=== PATIENT | male | born 1950 | race Caucasian/White ===

== ENCOUNTER 2016-10-27 13:34 | Emergency (ER) | payer MEDICARE, OTHER ==
[2016-10-27 13:50] VITALS: BP 144/80
--- NOTE | 2016-10-27 14:00 | EDM.PDOC ---
ED HPI GENERAL MEDICAL PROBLEM - General Chief Complaint: General Stated Complaint: SWELLING/NAUSEA Time Seen by Provider: 10/27/16 13:59 Source of Information: Reports: Patient History Limitations: Reports: No Limitations - History of Present Illness INITIAL COMMENTS - FREE TEXT/NARRATIVE: 66-year-old male presents to the ED for evaluation of increased fluid retention and weight gain over the last month. Feels he's gained between 20 and 25 pounds of weight since he's been on vacation over the last month. He is particularly noting increased dependent edema and now today more swelling in his dorsal hands and fingers. No swelling of his face. He can sleep lying flat for a period of time but has to get up usually because he feels like his somebody close enough his nose and has to sit in the easy chair up for a while and midnight. Cough is nonproductive. No fever or chills. Appetite remains good. Feels he is voiding satisfactorily. History of sarcoidosis diagnosed 12 years ago and states he's always been short of breath or dyspneic since that time. No recurrences or flareups identified. No recent changes to any of his medications. He has appreciated increased allergies affecting his nose and eyes since he's been in the [facility] states. Onset: Gradual (Over the last 3-4 weeks.) Duration: Day(s):, Week(s):, Getting Worse Location: Reports: Generalized (Generalized increase in weight and fluid retention in his lower and upper extremities.) Quality: Reports: Other Severity: Moderate (Feels a little achy.) Improves with: Reports: None Worsens with: Reports: None Context: Reports: Other (Currently on vacation and traveling. Came up from [facility] and throughout the [facility] and now crossing across the [facility]) . Denies: Activity, Exercise, Lifting, Sick Contact, Trauma Associated Symptoms: Reports: Cough, Diaphoresis, Malaise (Nonproductive cough) , Shortness of Breath, Weakness (Generalized.). 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: Reports: Other (see below) Left Chest Pain Score (Numeric/FACES): 2 - Related Data Allergies Allergy/AdvReac Type Severity Reaction Status Date / Time Uvcwhro-Doc-Lme Reductase Allergy Muscle Verified 10/27/16 13:51 Inhibitor Aches Home Meds: Home Meds Atenolol 50 mg PO DAILY 10/27/16 [History] Hydrochlorothiazide 50 mg PO DAILY 10/27/16 [History] Levothyroxine 125 mcg PO DAILY 10/27/16 [History] Naproxen Sodium 220 mg PO BID 10/27/16 [History] Tamsulosin [Flomax] 0.4 mg PO BEDTIME 10/27/16 [History] Past Medical History HEENT History: Reports: Impaired Vision Cardiovascular History: Reports: High Cholesterol, Hypertension Respiratory History: Reports: Other (See Below) Other Respiratory History: sarcoidois of the lungs. Diagnosed 12 years ago. As far as he knows it's under control. Gastrointestinal History: Reports: None Genitourinary History: Reports: BPH Musculoskeletal History: Reports: Arthritis Endocrine/Metabolic History: Reports: Hypothyroidism (Is on supplementation for this.) Dermatologic History: Reports: Eczema - Past Surgical History Cardiovascular Surgical History: Reports: None Respiratory Surgical History: Reports: None GI Surgical History: Reports: Colonoscopy Social & Family History - Family History Family Medical History: Noncontributory - Tobacco Use Smoking Status *Q: Former Smoker Used Tobacco, but Quit: Yes Month Tobacco Last Used: 1973 - Caffeine Use Caffeine Use: Reports: Coffee, Soda - Recreational Drug Use Recreational Drug Use: No - Living Situation & Occupation Living situation: Reports: Occupation: Retired ED ROS GENERAL - Review of Systems Review Of Systems: See Below Constitutional: Reports: Malaise, Weakness, Fatigue, Diaphoresis. Denies: Fever , Chills, Decreased Appetite, Weight Loss HEENT: Reports: No Symptoms Respiratory: Reports: Shortness of Breath, Cough. Denies: Wheezing, Pleuritic Chest Pain (On minimal exertion), Sputum, Hemoptysis (Nonproductive), Other Cardiovascular: Reports: Blood Pressure Problem, Dyspnea on Exertion ( Increasing dependent edema and no appreciable in his hands and fingers as well.) , Edema. Denies: Claudication, Lightheadedness, Orthopnea (Chronic hypertension usually well-controlled with current medications.), Palpitations ( Chronically) Endocrine: Reports: Fatigue GI/Abdominal: Denies: Abdominal Pain, Anorexia, Black Stool, Bloody Stool, Diarrhea, Decreased Appetite, Difficulty Swallowing, Flatus, Hematemesis, Hematochezia, Melena, Stool Incontinence, Vomiting, Other : Reports: Frequency, Other (Has benign prostatic hypertrophy. Urinary stream is slow. Usually up twice at night to void.) Musculoskeletal: Reports: Back Pain, Joint Pain Skin: Reports: No Symptoms (Knees and hips at times.) Neurological: Reports: No Symptoms Psychiatric: Reports: No Symptoms ED EXAM, GENERAL - Physical Exam Exam: See Below Exam Limited By: No Limitations General Appearance: Alert, WD/WN, No Apparent Distress Eye Exam: Bilateral Eye: Normal Inspection Throat/Mouth: Normal Inspection, Normal Lips, Normal Teeth, Normal Oropharynx Head: Atraumatic, Normocephalic Neck: Normal Inspection, Supple, Non-Tender, Full Range of Motion, Other ( Unable to appreciate any jugular venous pulsation elevation due to bowl neck.). No: Lymphadenopathy (L), Lymphadenopathy (R) Respiratory/Chest: No Respiratory Distress, Lungs Clear, Normal Breath Sounds, No Accessory Muscle Use, Chest Non-Tender. No: Respiratory Distress, Rhonchi, Wheezing, Retractions Cardiovascular: Regular Rate, Rhythm, No Gallop, No Murmur, No Rub. No: No Edema Peripheral Pulses: 1+: Posterior Tibial (L), Posterior Tibial (R), Dorsalis Pedis (L), Dorsalis Pedis (R) GI/Abdominal: Normal Bowel Sounds, Soft, Non-Tender, No Organomegaly, Other Back Exam: Normal Inspection, Full Range of Motion. No: CVA Tenderness (L), CVA Tenderness (R) Extremities: Pedal Edema Neurological: Alert (2-3+ pitting edema of the lower extremities up to the tibial tuberosities bilaterally. Also dorsal hands and fingers are puffy and swollen.), Oriented, CN II-XII Intact, Normal Cognition, No Motor/Sensory Deficits. No: Normal Gait Psychiatric: Normal Affect, Normal Mood Skin Exam: Warm, Dry, Intact, Normal Color, No Rash EKG INTERPRETATION EKG Date: 10/27/16 Time: 14:15 Rhythm: Other Rate (Beats/Min): 42 [place]: LAD-Left [place] Deviation P-Wave: Present (-60. Left anterior fascicular block pattern) QRS: Normal ST-T: Normal QT: Prolonged (Markedly prolonged at 509.) Course - Vital Signs Last Recorded V/S: Last Vital Signs Temp 36.0 C 10/27/16 13:45 Pulse 46 L 10/27/16 13:45 Resp 16 10/27/16 13:45 BP 144/80 H 10/27/16 13:45 Pulse Ox 98 10/27/16 13:45 - Orders/Labs/Meds Orders: Active Orders 24 hr Category Date Time Status EKG Documentation Completion [RC] STAT Care 10/27/16 14:09 Active Peripheral IV Care [RC] . DIRECTED Care 10/27/16 14:09 Active Chest 1V Frontal [CR] Stat Exams 10/27/16 14:08 Taken Sodium Chloride 0.9% [Saline Flush] Med 10/27/16 14:08 Active 10 ml FLUSH ASDIRECTED PRN Peripheral IV Insertion Adult [OM.PC] Stat Oth 10/27/16 14:09 Ordered Medication Orders Sodium Chloride (Saline Flush) 10 ml FLUSH ASDIRECTED PRN PRN Reason: Keep Vein Open Last Admin: 10/27/16 14:38 Dose: 10 ml Labs: Laboratory Tests 10/27/16 10/27/16 10/27/16 Range/Units 14:15 14:15 14:15 WBC 7.29 (4.23-9.07) K/mm3 RBC 5.54 (4.63-6.08) M/mm3 Hgb 15.9 (13.7-17.5) gm/L Hct 47.9 (40.1-51.0) % MCV 86.5 (79.0-92.2) fl MCH 28.7 (25.7-32.2) pg MCHC 33.2 (32.2-35.5) g/dl RDW Std Deviation 44.8 H (35.1-43.9) fL Plt Count 297 (163-337) K/mm3 MPV 10.0 (9.4-12.3) fl Neutrophils % (Manual) 73 H (40-60) % Band Neutrophils % 0 (0-10) % Lymphocytes % (Manual) 19 L (20-40) % Atypical Lymphs % 0 % Monocytes % (Manual) 7 (2-10) % Eosinophils % (Manual) 1 (0.8-7.0) % Basophils % (Manual) 0 L (0.2-1.2) Platelet Estimate Adequate RBC Morph Comment Normal ESR 81 H (0-15) mm/hr Sodium 138 (136-145) mEq/L Potassium 3.6 (3.5-5.1) mEq/L Chloride 103 (98-107) mEq/L Carbon Dioxide 29 (21-32) mEq/L Anion Gap 9.6 (5-15) BUN 20 H (7-18) mg/dL Creatinine 1.9 H (0.7-1.3) mg/dL Est Cr Clr Drug Dosing 37.00 mL/min Estimated GFR (MDRD) 36 (>60) mL/min BUN/Creatinine Ratio 10.5 L (14-18) Glucose 93 (80-115) mg/dL Calcium 8.3 L (8.5-10.1) mg/dL Magnesium 2.5 H (1.8-2.4) mg/dl Total Bilirubin 0.4 (0.2-1.0) mg/dL AST 31 (15-37) U/L ALT 25 (16-63) U/L Alkaline Phosphatase 83 (46-116) U/L C-Reactive Protein 1.0 (<1.0) mg/dL B-Natriuretic Peptide (0-100) pg/mL Total Protein 5.7 L (6.4-8.2) g/dl Albumin 1.3 L (3.4-5.0) g/dl Globulin 4.4 gm/dL Albumin/Globulin Ratio 0.3 L (1-2) TSH 3rd Generation 20.644 H (0.358-3.74) uIU/mL Urine Color (Yellow) Urine Appearance (Clear) Urine pH (5.0-8.0) Ur Specific [place] (1.005-1.030) Urine Protein (Negative) Urine Glucose (UA) (Negative) Urine Ketones (Negative) Urine Occult Blood (Negative) Urine Nitrite (Negative) Urine Bilirubin (Negative) Urine Urobilinogen (0.2-1.0) Ur Leukocyte Esterase (Negative) Urine RBC (0-5) /hpf Urine WBC (0-5) /hpf Ur Epithelial Cells (0-5) /hpf Amorphous Sediment (NOT SEEN) /hpf Urine Bacteria (FEW) /hpf Hyaline Casts (0-5) /lpf Urine Mucus (FEW) /hpf 10/27/16 10/27/16 Range/Units 14:15 15:10 WBC (4.23-9.07) K/mm3 RBC (4.63-6.08) M/mm3 Hgb (13.7-17.5) gm/L Hct (40.1-51.0) % MCV (79.0-92.2) fl MCH (25.7-32.2) pg MCHC (32.2-35.5) g/dl RDW Std Deviation (35.1-43.9) fL Plt Count (163-337) K/mm3 MPV (9.4-12.3) fl Neutrophils % (Manual) (40-60) % Band Neutrophils % (0-10) % Lymphocytes % (Manual) (20-40) % Atypical Lymphs % % Monocytes % (Manual) (2-10) % Eosinophils % (Manual) (0.8-7.0) % Basophils % (Manual) (0.2-1.2) Platelet Estimate RBC Morph Comment ESR (0-15) mm/hr Sodium (136-145) mEq/L Potassium (3.5-5.1) mEq/L Chloride (98-107) mEq/L Carbon Dioxide (21-32) mEq/L Anion Gap (5-15) BUN (7-18) mg/dL Creatinine (0.7-1.3) mg/dL Est Cr Clr Drug Dosing mL/min Estimated GFR (MDRD) (>60) mL/min BUN/Creatinine Ratio (14-18) Glucose (80-115) mg/dL Calcium (8.5-10.1) mg/dL Magnesium (1.8-2.4) mg/dl Total Bilirubin (0.2-1.0) mg/dL AST (15-37) U/L ALT (16-63) U/L Alkaline Phosphatase (46-116) U/L C-Reactive Protein (<1.0) mg/dL B-Natriuretic Peptide 26 (0-100) pg/mL Total Protein (6.4-8.2) g/dl Albumin (3.4-5.0) g/dl Globulin gm/dL Albumin/Globulin Ratio (1-2) TSH 3rd Generation (0.358-3.74) uIU/mL Urine Color Yellow (Yellow) Urine Appearance Clear (Clear) Urine pH 6.5 (5.0-8.0) Ur Specific [place] 1.020 (1.005-1.030) Urine Protein 3+ H (Negative) Urine Glucose (UA) Negative (Negative) Urine Ketones Negative (Negative) Urine Occult Blood 2+ H (Negative) Urine Nitrite Negative (Negative) Urine Bilirubin 1+ H (Negative) Urine Urobilinogen 1.0 (0.2-1.0) Ur Leukocyte Esterase Negative (Negative) Urine RBC 10-20 H (0-5) /hpf Urine WBC 0-5 (0-5) /hpf Ur Epithelial Cells 0-5 (0-5) /hpf Amorphous Sediment Moderate H (NOT SEEN) /hpf Urine Bacteria Few (FEW) /hpf Hyaline Casts 0-5 (0-5) /lpf Urine Mucus Not seen (FEW) /hpf Meds: Medications Generic Name Dose Route Start Last Admin Trade Name Freq PRN Reason Stop Dose Admin Sodium Chloride 10 ml 10/27/16 14:08 10/27/16 14:38 Saline Flush FLUSH 10 ml ASDIRECTED PRN Administration Keep Vein Open - Radiology Interpretation Free Text/Narrative:: 66-year-old male presents to the ED for evaluation of increasing dependent edema now edema affecting his upper extremities as well. Seems to have gained between 20 and 25 pounds of weight over the last month since he's been traveling. Currently is on vacation with his he has been affected a lot bye allergies in the air with his nose being occluded and eyes irritated but no changes in his medications to account for increasing dependent edema. He has no true orthopnea. He wakes up due to nasal congestion and has to sit in the easy chair for a period of time. Exam reveals 2-3+ pitting edema of the lower extremities as well as puffiness of his hands and fingers. He is retaining a good deal of fluid for unknown reason. He has a history of sarcoidosis 12 years ago and is to his knowledge it's been quiescent. Unclear whether or not he is component of pulmonary hypertension. He is on thyroid replacement therapy. Plan routine labs including a TSH to be done including cardiac markers. Cause of edema is unclear. Could be cardiogenic with pulmonary hypertension secondary to sarcoidosis. Could be renal as well. - Re-Assessments/Exams Free Text/Narrative Re-Assessment/Exam: 10/27/16 14:39 chest x-ray reveals prominent pulmonary right artery with perhaps very slight vascular congestion pattern. Cardiac silhouette is within normal limits. No pleural effusions evident. 10/27/16 16:08 labs are back and reveal a normal white count at 7.29 with normal differential 73% neutrophils and no bands. Hemoglobin is 15.9 hematocrit is 47.9. Platelets are 297,000. Sedimentation rate is elevated at 81 and needs to be kept an eye on. Sodium 1:30 potassium 3.6. Portable 03 bicarbonate 29. Anion gap is 9.6. The wind was 20 creatinine is 1.9.e GFR is 36 a stage III chronic kidney disease. Glucose is 93 magnesium 2.5 TSH came back markedly elevated at 20.64. His would correlate with his generalized weight gain puffiness without evidence of congestive failure. It also would account for his bradycardia of only 42. He reports last checkup was in August of this year in his medication was not changed. Been on thyroid medication since 2005 with gradually escalating doses. Therefore primary problem is uncontrolled hypothyroidism. Plan will be to double the dosage of his current medication of 0.125 milligrams of levothyroxine daily to 0.25 mg daily. He is to have repeat TSH done in 6-8 weeks' time. He should appreciated gradual increase in his heart rate and fatigue level and sleeping levels etc. Departure - Departure Time of Disposition: 16:11 Disposition: Home, Self-Care 01 Condition: Fair Clinical Impression: Hypothyroidism (acquired) - Discharge Information Instructions: Hypothyroidism Referrals: PCP,Not In Area [Primary Care Provider] - Forms: ED Department Discharge Additional Instructions: Evaluation in the emergency room today in regards to generalized fatigue weight gain of 20-25 pounds over the last month bradycardia and dyspnea on minimal exertion. Examination revealed no obvious signs of congestive heart failure although there is dependent edema in the lower extremities. Heart rate was appreciated on the be 42/m but otherwise normal ECG. Chest x-ray proved to be normal as well. Lab work essentially normal other than elevated sedimentation rate at 81 which may require further investigation should be repeated in 6 weeks ' time. This is a nonspecific indicator of inflammation. Primary problem is underactive thyroid gland with a TSH of 20.644. Normal is 2. It's means that current supplementation is inadequate replacement therapy. So for suggest doubling current dose to 2 tablets of the 1.25 microgram tablets per day. Continue this dosage until follow-up with your doctor in 6-8 weeks time.At that time repeat TSH/ESR will need to be done to see if placement therapy is adequate it may have to be reduced we bit. You should start to notice a difference in about a week's time in terms of energy level and fatigue level and heart rate improvement. - My Orders Last 24 Hours: My Active Orders 10/27/16 14:08 Chest 1V Frontal [CR] Stat Sodium Chloride 0.9% [Saline Flush] 10 ml FLUSH ASDIRECTED PRN 10/27/16 14:09 EKG Documentation Completion [RC] STAT Peripheral IV Care [RC] . DIRECTED Peripheral IV Insertion Adult [OM.PC] Stat - Assessment/Plan Last 24 Hours: My Active Orders 10/27/16 14:08 Chest 1V Frontal [CR] Stat Sodium Chloride 0.9% [Saline Flush] 10 ml FLUSH ASDIRECTED PRN 10/27/16 14:09 EKG Documentation Completion [RC] STAT Peripheral IV Care [RC] . DIRECTED Peripheral IV Insertion Adult [OM.PC] Stat
[2016-10-27] MEDS ORDERED: Sodium Chloride 0.9% 10 ML Syringe FLUSH PRN (14:08)
--- NOTE | 2016-10-28 08:03 | CR ---
Chest: Portable view of the chest was obtained. Comparison: No previous study. Heart size is normal. Tortuous thoracic aorta is seen. Lung markings are minimally increased most likely due to slight fibrosis. Nodule is noted within the left upper chest which is likely due to calcification within the first rib or incidental calcified granuloma. Lungs otherwise are clear. Bony structures are grossly intact. Impression: 1. Lung markings minimally increased most likely due to slight fibrosis. 2. Other incidental findings. 3. Nothing acute is otherwise seen on portable chest x-ray. Diagnostic code #2
== END 2016-10-27 16:30 | disposition home or self-care (01) ==
LOC: JD.ED 13:34
DX: E03.9 Hypothyroidism, unspecified (principal); E78.00 Pure hypercholesterolemia, unspecified; I10 Essential (primary) hypertension; Z87.891 Personal history of nicotine dependence; Z79.899 Other long term (current) drug therapy; R06.02 Shortness of breath
CPT/HCPCS: 36415; 71010; 80053; 81001; 83735; 83880; 84443; 85025; 85652; 86140; 93005; 99284; J7050

== ENCOUNTER 2016-11-01 18:05 | Emergency (ER) | payer MEDICARE, OTHER ==
[2016-11-01] MEDS ORDERED: Magnesium Hydroxide 400 MG/5 ML Susp 30 ML Cup PO ONE (20:05)
--- NOTE | 2016-11-01 20:08 | EDM.PDOC ---
ED HPI GENERAL MEDICAL PROBLEM - General Chief Complaint: Abdominal Pain Stated Complaint: Bloating Time Seen by Provider: 11/01/16 18:50 Source of Information: Reports: Patient, Old Records, RN Notes Reviewed History Limitations: Reports: No Limitations - History of Present Illness INITIAL COMMENTS - FREE TEXT/NARRATIVE: 66 year old male presents to the ED with complaints of abdominal bloating and gas. The symptoms have been present for quite some time but seem to be getting worse. He is passing gas and having daily soft bowel movements. He has occasional nausea but no vomiting. His appetite is very good and he's been drinking fluids. He reports drinking 4 bottles of water today. He was recently evaluated in the ED on 10/27/16 and was found to have an elevated TSH. Dr. Butcher doubled his levothyroxine dosage. At that time the patient had significant generalized swelling which seems to be improving. No fever, chills, cough, or chest pain. He has chronic shortness of breath related to his sarcoidosis. Denies any worsening shortness of breath. He admits to not being as active as normal and has felt very fatigued. 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 (see below) Other Treatments SIGN PAINTER HELPER: gas x at 0900 mid abdomen Pain Score (Numeric/FACES): 4 - Related Data Allergies Allergy/AdvReac Type Severity Reaction Status Date / Time [id number] Reductase Allergy Muscle Verified 11/01/16 18:29 Inhibitor Aches Home Meds: Home Meds Atenolol 50 mg PO DAILY 10/27/16 [History] Hydrochlorothiazide 50 mg PO DAILY 10/27/16 [History] Levothyroxine 250 mcg PO DAILY 10/27/16 [History] Naproxen Sodium 220 mg PO BID 10/27/16 [History] Tamsulosin [Flomax] 0.4 mg PO BEDTIME 10/27/16 [History] Past Medical History HEENT History: Reports: Impaired Vision Cardiovascular History: Reports: High Cholesterol, Hypertension Respiratory History: Reports: Other (See Below) Other Respiratory History: sarcoidois of the lungs. Diagnosed 12 years ago. As far as he knows it's under control. Gastrointestinal History: Reports: Other (See Below) Other Gastrointestinal History: gas, abdominal distention Genitourinary History: Reports: BPH Musculoskeletal History: Reports: Arthritis Endocrine/Metabolic History: Reports: Hypothyroidism Dermatologic History: Reports: Eczema - Past Surgical History Cardiovascular Surgical History: Reports: None Respiratory Surgical History: Reports: None GI Surgical History: Reports: Colonoscopy Social & Family History - Family History Family Medical History: Noncontributory - Tobacco Use Smoking Status *Q: Never Smoker Used Tobacco, but Quit: Yes Month Tobacco Last Used: 1973 - Caffeine Use Caffeine Use: Reports: Coffee, Soda - Recreational Drug Use Recreational Drug Use: No - Living Situation & Occupation Living situation: Reports: Occupation: Retired ED ROS GENERAL - Review of Systems Review Of Systems: See Below Constitutional: Reports: Malaise, Fatigue. Denies: Fever, Chills, Diaphoresis Respiratory: Reports: Shortness of Breath. Denies: Cough, Sputum Cardiovascular: Reports: Edema (generalized ). Denies: Chest Pain, Dyspnea on Exertion, Lightheadedness GI/Abdominal: Reports: Distension, Nausea. Denies: Abdominal Pain, Constipation , Diarrhea, Decreased Appetite, Vomiting ED EXAM, GI/ABD - Physical Exam Exam: See Below Exam Limited By: No Limitations General Appearance: Alert, No Apparent Distress, Obese Respiratory/Chest: No Respiratory Distress, Lungs Clear, Normal Breath Sounds, No Accessory Muscle Use, Chest Non-Tender Cardiovascular: Normal Peripheral Pulses, Bradycardia, Other (non-pitting edema to lower extremities. Mild edema to upper extremities ) GI/Abdominal: Non-Tender, No Organomegaly, No Abnormal Bruit, No Mass, Hyperactive Bowel Sounds, Distention. No: Guarding, Rebound, Rigidity Course - Vital Signs Last Recorded V/S: Last Vital Signs Temp 96.1 F 11/01/16 18:16 Pulse 42 L 11/01/16 18:16 Resp 18 11/01/16 18:16 BP 162/74 H 11/01/16 18:16 Pulse Ox 97 11/01/16 18:16 - Orders/Labs/Meds Orders: Active Orders 24 hr Category Date Time Status Abdomen 2V AP Flat Upright [CR] Stat Exams 11/01/16 19:05 Taken Meds: Medications Discontinued Medications Generic Name Dose Route Start Last Admin Trade Name Freq PRN Reason Stop Dose Admin Magnesium Hydroxide 30 ml 11/01/16 20:05 Milk Of Magnesia PO 11/01/16 20:06 ONETIME ONE - Re-Assessments/Exams Free Text/Narrative Re-Assessment/Exam: Flat and upright abdominal x-ray reveals increased stool in the right colon with gas throughout transverse and descending colon. No air fluid levels to indicate bowel obstruction. Also, no clinical signs of bowel obstruction. The patient has hyperactive bowel sounds consistent with constipation. I suspect that his bowels are not moving as adequately due to the hypothyroidism. Will give Milk of Magnesia 30ml PO x1 now to help stimulate bowel movement and relief from gas. He was instructed to drink plenty of fluids and ambulate as much as possible. Encouraged to return if symptoms worsen. Discharge instructions as documented. Departure - Departure Time of Disposition: 20:05 Disposition: Home, Self-Care 01 Condition: Good Clinical Impression: Abdominal distension (gaseous), Hypothyroidism (acquired) - Discharge Information Referrals: PCP,Not In Area [Primary Care Provider] - Forms: ED Department Discharge Additional Instructions: Drink at least 80 oz of water per day Walking can significantly help with gas and bloating Continue your levothyroxine as prescribed Return to ER with any new or worsening symptoms Follow-up with your primary care provider when you return home. Simethicone 3 times a day as needed for gas - My Orders Last 24 Hours: My Active Orders 11/01/16 19:05 Abdomen 2V AP Flat Upright [CR] Stat - Assessment/Plan Last 24 Hours: My Active Orders 11/01/16 19:05 Abdomen 2V AP Flat Upright [CR] Stat
[2016-11-01 20:32] VITALS: BP 144/73
--- NOTE | 2016-11-02 08:36 | CR ---
Abdomen: Supine and upright views of the abdomen were obtained. Bowel gas pattern appears normal. Slight degenerative change is scattered within the spine. Mild joint space narrowing is seen within both hips. No soft tissue abnormality is appreciated. No abnormal calcifications are seen. Impression: 1. Nothing acute is identified on two-view abdominal x-ray. Incidental findings as described above. Diagnostic code #2
== END 2016-11-01 20:30 | disposition home or self-care (01) ==
LOC: JD.ED 18:05
DX: R14.0 Abdominal distension (gaseous) (principal); E03.9 Hypothyroidism, unspecified; E78.00 Pure hypercholesterolemia, unspecified; I10 Essential (primary) hypertension; Z79.899 Other long term (current) drug therapy
CPT/HCPCS: 74020; 99284; A9270; 99283